=== PATIENT | female | born 1955 | race Caucasian/White ===

== ENCOUNTER 2020-02-04 17:13 | Emergency (ER) | payer MEDICARE, OTHER, SELFPAY ==
[~2020-02-04] VITALS: Ht 154.9 cm; Wt 77.1 kg
[~2020-02-04 17:13] MED LIST: ACET-3457 PO; ALBU3SOL49 IH; BISA10SU1 RC; CALC600T56 PO; CARV6.25 PO; DOCU-299 PO; FERR325E14 PO; GEMF600T5 PO; LEVO500T6 PO; MULT-1184 PO; SINE25 PO; VALP250S20 PO
[2020-02-04 17:14] VITALS: BP 106/66
--- NOTE | 2020-02-04 17:15 | NUR ---
64 YO Female BIBA c/o Altered mental status . Per EMS pt was found walking to laundry mat and was called in due to altered mental status. Pt stated she was in her 50s. Per EMS pt altered to time and place. Pt able to follow all commands . Pt oriented to name, place , time. Pt stated she was walking to a new laundry mat , which was further than her normal laundry place. Pt is unsure why she was taken to hospital. Pt able to let us know her name and address. Pt strenght bilaterally strong in all extremities. Pt PERRLA, able to track. Pt oberved to be sweating , and flushed in the face. Pt hooked up to ekg monitor tech and pulse ox. Pt resting in bed at lowest position, HOB elevated , side rails x2 for pt safety. HX: seizures, HTN RX: unknown
--- NOTE | 2020-02-04 17:16 | NUR ---
Pt placed on seizure precautions, seizure pads placed on side rails.
--- NOTE | 2020-02-04 17:18 | NUR ---
YVETTE FABIAN ALS TO ER BED 02
--- NOTE | 2020-02-04 17:50 | NUR ---
[facility] called for p/u of pt.
--- NOTE | 2020-02-04 18:00 | NUR ---
pt was provided water. Pt resting in bed at lowest position, side rails x2 , seizure pads in place, HOB elevated.
[2020-02-04 18:21] VITALS: BP 106/66
--- NOTE | 2020-02-04 18:22 | NUR ---
Patient discharged with v/s stable. Written and verbal after care instructions given and explained. Patient alert, oriented and verbalized understanding of instructions. Wheel Chair Assisted with to [facility] staff for transportation to halfway. All questions addressed prior to discharge. ID band removed. Patient advised to follow up with PMD. Rx of Cipro given. Patient educated on indication of medication including possible reaction and side effects. Opportunity to ask questions provided and answered.
== END 2020-02-04 18:22 | disposition home or self-care (01) ==
LOC: MED 17:13 → EEVIPCON 17:13 → MED 18:22
DX: N39.0 Urinary tract infection, site not specified (principal); I10 Essential (primary) hypertension; Z79.899 Other long term (current) drug therapy; Z88.2 Allergy status to sulfonamides
CPT/HCPCS: 81002; 87086; 99283

== ENCOUNTER 2021-05-18 11:30 | Inpatient (IN) | payer OTHER, SELFPAY ==
[~2021-05-18] VITALS: Ht 162.6 cm; Wt 62.1 kg
--- NOTE | 2021-05-18 11:30 | NUR ---
PT BIBA AND PLACED IN BED 5.
[2021-05-18 11:36] VITALS: BP 154/76
--- NOTE | 2021-05-18 11:36 | NUR ---
66 Y/O FEMALE BIBA FROM A NURSING FACILITY [facility]. PER EMS WAS FOUND WANDERING AND WALKING AROUND A FAST FOOD FACILITY. PLACED ON 5150 HOLD BY MADHAVI DIANE. GCS 14. PT IS CONFUSED. MEDHX: PARANOIA, SCHIZOPHRENIA ALLERGIES: SULFA
--- NOTE | 2021-05-18 12:03 | NUR ---
S/W MELISSA CAREGIVER AT [facility]. CONSERVATOR JULIA JETER, NO PHONE NUMBER PROVIDED. PT HAS HISTORY OF PARANOIA AND SCHIZOPHRENIA. FACILITY WILL CLOSE ON THURSDAY. UNABLE TO PROVIDE TRANSPORTATION.
--- NOTE | 2021-05-18 12:27 | NUR ---
XRAY AT BEDSIDE
--- NOTE | 2021-05-18 12:39 | NUR ---
COVID SWABS COLLECTED AND DROPPED OFF AT LAB WITH GRISELDA SEQUEIRA
--- NOTE | 2021-05-18 13:30 | NUR ---
LAB AT BEDSIDE
[2021-05-18 13:42] LABS: RED CELL DISTRIBUTION WIDTH 13.4 % (11.6-13.7)
[2021-05-18 13:51] LABS: BASOPHILS % (AUTO) 0.6 % (0.0-2.0); EOSINOPHILS # (AUTO) 0.2 K/uL (0-0.4); HEMATOCRIT 37.9 % (36-48); HEMOGLOBIN 13.4 g/dL (12.0-16.0); LYMPHOCYTES # (AUTO) 2.3 K/uL (2.5-16.5); LYMPHOCYTES % (AUTO) 30.5 % (20.5-51.1); MEAN CORPUSCULAR HEMOGLOBIN 33 pg (27-31); MEAN CORPUSCULAR HGB CONC 35 g/dL (33-37); MEAN CORPUSCULAR VOLUME 92.6 fL (80-94); MONOCYTES # (AUTO) 0.5 K/uL (0.8-1.0); MONOCYTES % (AUTO) 6.7 % (1.7-9.3); NEUTROPHILS # (AUTO) 4.6 K/uL (1.8-7.7); NEUTROPHILS % (AUTO) 60.2 % (42.2-75.2); PLATELET COUNT (AUTO) 226 K/uL (140-450); WHITE BLOOD COUNT (AUTO) 7.6 K/uL (4.8-10.8)
[2021-05-18] MEDS ORDERED: LEVOFLOXACIN 500 MG/D5W PREMIX 100 ML IV ONE (13:55)
[2021-05-18 14:04] LABS: ALBUMIN 3.8 g/dL (3.4-5.0); ANION GAP 14.2 (8-16); ASPARTATE AMINOTRANSFERASE 23 U/L (15-37); CARBON DIOXIDE 27.7 mmol/L (21-32); CHLORIDE 103 mmol/L (98-107); CREATININE 1.1 mg/dL (0.6-1.3); GFR ARICAN-AMERICAN 64 mL/min (>90); GLUCOSE 100 mg/dL (74-106); POTASSIUM 3.9 mmol/L (3.5-5.1); SODIUM SERUM 141 mmol/L (136-145); TOTAL BILIRUBIN 0.6 mg/dL (0.0-1.0); UREA NITROGEN, BLOOD 19 mg/dL (7-18)
[2021-05-18 14:07] LABS: ACETAMINOPHEN < 0.5 ug/ml (10-30); SALICYLATE < 2.8 mg/dL (2.8-20.0)
--- NOTE | 2021-05-18 14:30 | NUR ---
PT AWAKE, RESTING IN BED. RESPIRATIONS EVEN AND UNLABORED. CHEST RISE IS SYMMETRICAL. WILL CONTINUE TO MONITOR.
[2021-05-18 15:56] LABS: APPEARANCE,URINE CLEAR (CLEAR); BILIRUBIN,URINE NEGATIVE (NEGATIVE); BLOOD, URINE NEGATIVE (NEGATIVE); COLOR,URINE YELLOW (YELLOW); LEUKOCYTE ESTERASE ,URINE TRACE (NEGATIVE); NITRITE, URINE NEGATIVE (NEGATIVE); UGLUCOSE NEGATIVE (NEGATIVE)
[2021-05-18 16:24] LABS: BARBITURATE, URINE NEGATIVE ng/ml (NEG <=200); BENZODIAZEPINE, URINE NEGATIVE ng/mL (NEG <=200); CANNABINOID, URINE NEGATIVE ng/mL (NEG <=50); COCAINE, URINE NEGATIVE ng/mL (NEG <=300); OPIATE, URINE NEGATIVE ng/mL (NEG <=2000); PHENCYCLIDINE SCREEN,URINE NEGATIVE ng/mL (NEG <=25)
[2021-05-18 16:29] LABS: RBC,URINE 0-5 /HPF (0-5)
--- NOTE | 2021-05-18 16:46 | NUR ---
Patient will be admitted to care of DR AMES. Admited to MED SURG. Will go to room 109 B. Belongings list completed. Report to KADI NEVES.
[2021-05-18] MEDS ORDERED: DOCUSATE SODIUM 100 MG GELCAP PO PRN (17:30)
[2021-05-18] MEDS ORDERED: POTASSIUM CHLORIDE 10 MEQ TABER PO PRN (17:30)
[2021-05-18] MEDS ORDERED: ZOLPIDEM 5 MG TAB PO PRN (17:30)
[2021-05-18] MEDS ORDERED: ACETAMINOPHEN 325 MG TAB PO PRN (17:30)
[2021-05-18] MEDS ORDERED: guaiFENesin DM 200/20 MG-10 ML 10 ML UDC PO PRN (17:30)
[2021-05-18] MEDS ORDERED: HYDROcodone/APAP 7.5/325 MG 1 TAB PO PRN (17:30)
[2021-05-18] MEDS ORDERED: ONDANSETRON 4 MG/2 ML VIAL IM/IVP PRN (17:30)
[2021-05-18] MEDS: NACL 0.9% 1,000 ML IV SCH (19:03)
--- NOTE | 2021-05-18 19:25 | NUR ---
RECD. REPORT FROM PURA NELSON. PATIENT RESTING IN BED, AWAKE, A/OX3. RESPIRATION EVEN AND UNLABORED. IV OF NS INFUSING 60 ML/HR, LEFT AC G20. ABLE TO AMBULATE TO THE BR INDEPENDENTLY. MEDICATIONS AND CARE FOR THE NIGHT DISCUSSED WITH PATIENT. VERBALIZED UNDERSTANDING. DENIES PAIN 0/10.
[2021-05-18] MEDS ORDERED: cefTRIAXone 1,000 MG VIAL ONE (19:28)
[2021-05-18 19:57] LABS: PROTHROMBIN TIME 11.5 secs (10.8-13.4)
[2021-05-18 20:28] LABS: CHOL/HDL RATIO 3.5 (1-4.5); FREE T4 (FREE THYROXINE) 0.72 ng/dL (0.76-1.46); MAGNESIUM 1.4 mg/dL (1.8-2.4); PHOSPHORUS 3.9 mg/dL (2.5-4.9); THYROID STIMULATING HORMONE 0.87 uIU/mL (0.34-3.74)
[2021-05-18] MEDS ORDERED: VALPROIC ACID 500 MG PO SCH (21:00)
--- NOTE | 2021-05-18 21:00 | NUR ---
ASSISTED TO BR TO VOID, BACK TO BED AFTER VOIDING. SAFETY MAINTAINED.
--- NOTE | 2021-05-18 22:00 | NUR ---
ENCOURAGED TO DRINK MORE WATER AND CRANBERRY JUICES. ASSISTED TO BR TO VOID. BACK TO BED AFTER VOIDING.
--- NOTE | 2021-05-18 23:34 | NUR ---
Patient's Plan of Care was discussed and reviewed with BANDER AND CELLOPHANER MACHINE HELPER: Jing oWmack
[2021-05-19] VITALS: BP 101/54
--- NOTE | 2021-05-19 00:05 | NUR ---
SLEEPING COMFORTABLY IN BED.
--- NOTE | 2021-05-19 02:00 | NUR ---
SLEEPING SUPINE IN BED, RESPIRATION EVEN AND UNLABORED.
--- NOTE | 2021-05-19 04:00 | NUR ---
ON HER RIGHT SIDE STILL ASLEEP. RESPIRATION EVEN AND UNLABORED.
--- NOTE | 2021-05-19 06:00 | NUR ---
AWAKE, RESTING IN BED. ABLE TO SLEEP WELL DURING THE NIGHT.
--- NOTE | 2021-05-19 07:20 | NUR ---
ENDORSED TO AM SHIFT NURSE FOR CONTINUITY OF CARE.
[2021-05-19 07:45] LABS: BASOPHILS % (AUTO) 0.8 % (0.0-2.0); EOSINOPHILS # (AUTO) 0.3 K/uL (0-0.4); EOSINOPHILS % (AUTO) 5.6 % (0.0-4.0); HEMATOCRIT 36.2 % (36-48); HEMOGLOBIN 12.6 g/dL (12.0-16.0); LYMPHOCYTES # (AUTO) 1.9 K/uL (2.5-16.5); LYMPHOCYTES % (AUTO) 41.4 % (20.5-51.1); MEAN CORPUSCULAR HEMOGLOBIN 33 pg (27-31); MEAN CORPUSCULAR HGB CONC 35 g/dL (33-37); MEAN CORPUSCULAR VOLUME 94.1 fL (80-94); MONOCYTES # (AUTO) 0.4 K/uL (0.8-1.0); MONOCYTES % (AUTO) 9.3 % (1.7-9.3); NEUTROPHILS % (AUTO) 42.9 % (42.2-75.2); PLATELET COUNT (AUTO) 203 K/uL (140-450); RED BLOOD CELL COUNT(AUTO) 3.85 MIL/uL (4.20-5.40); RED CELL DISTRIBUTION WIDTH 13.5 % (11.6-13.7); WHITE BLOOD COUNT (AUTO) 4.7 K/uL (4.8-10.8)
[2021-05-19 08:00] VITALS: BP 89/52
[2021-05-19 08:07] LABS: ANION GAP 12.4 (8-16); CREATININE 0.8 mg/dL (0.6-1.3); POTASSIUM 3.4 mmol/L (3.5-5.1)
[2021-05-19] MEDS: PANTOPRAZOLE 40 MG TABEC PO SCH (09:28)
[2021-05-19] MEDS: VALPROIC ACID 250 MG/5 ML UDC PO SCH ×2 (09:28→21:56)
[2021-05-19] MEDS: NACL 0.9% 1,000 ML IV SCH (10:10)
[2021-05-19 17:30] VITALS: BP 98/64
--- NOTE | 2021-05-19 19:15 | NUR ---
CARL. REPORT FROM PURA HUGHES. PATIENT RESTING IN BED, AWAKE, A/OX3. 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 SHE WANTS TO GO HOME TOMORROW, CLAIMED THAT SHE LIVES WITH AND SON IN [place]. NO RESPIRATORY DISTRESS NOTED. RESPIRATION EVEN AND UNLABORED. IV OF NS INFUSING AT 60 ML/HR. ABLE TO AMBULATE WITH ASSISTANCE TO THE BR. DENIES PAIN 0/10.
--- NOTE | 2021-05-19 21:00 | NUR ---
ASSISTED TO BR TO VOID. BACK TO BED AFTER VOIDING.
--- NOTE | 2021-05-19 23:00 | NUR ---
WENT TO BR WITH ASSISTANCE. BACK TO BED AFTER VOIDING.
--- NOTE | 2021-05-20 01:00 | NUR ---
SLEEPING COMFORTABLY IN BED.
[2021-05-20 01:12] VITALS: BP 123/63
[2021-05-20] MEDS: NACL 0.9% 1,000 ML IV SCH ×2 (02:50→17:11)
--- NOTE | 2021-05-20 03:00 | NUR ---
WENT TO BR TO VOID AGAIN, SAFETY MAINTAINED.
--- NOTE | 2021-05-20 05:00 | NUR ---
STILL SLEEPING COMFORTABLY IN BED, RESPIRATION EVEN AND UNLABORED.
[2021-05-20 07:24] LABS: BASOPHILS % (AUTO) 0.6 % (0.0-2.0); EOSINOPHILS # (AUTO) 0.3 K/uL (0-0.4); HEMATOCRIT 36.1 % (36-48); HEMOGLOBIN 12.4 g/dL (12.0-16.0); LYMPHOCYTES # (AUTO) 2.5 K/uL (2.5-16.5); MEAN CORPUSCULAR HEMOGLOBIN 33 pg (27-31); MEAN CORPUSCULAR HGB CONC 34 g/dL (33-37); MEAN CORPUSCULAR VOLUME 94.5 fL (80-94); MONOCYTES # (AUTO) 0.4 K/uL (0.8-1.0); MONOCYTES % (AUTO) 7.5 % (1.7-9.3); NEUTROPHILS # (AUTO) 2.3 K/uL (1.8-7.7); NEUTROPHILS % (AUTO) 41.9 % (42.2-75.2); PLATELET COUNT (AUTO) 197 K/uL (140-450); RED BLOOD CELL COUNT(AUTO) 3.82 MIL/uL (4.20-5.40); RED CELL DISTRIBUTION WIDTH 13.3 % (11.6-13.7); WHITE BLOOD COUNT (AUTO) 5.5 K/uL (4.8-10.8)
--- NOTE | 2021-05-20 07:25 | NUR ---
CONDITION REMAIN STABLE. ENDORSED TO AM NURSE FOR CONTINUITY OF CARE.
[2021-05-20 07:43] LABS: ANION GAP 11.1 (8-16); CARBON DIOXIDE 28.6 mmol/L (21-32); CREATININE 0.8 mg/dL (0.6-1.3); POTASSIUM 3.7 mmol/L (3.5-5.1)
[2021-05-20 08:00] VITALS: BP 106/69
--- NOTE | 2021-05-20 08:29 | NUR ---
PATIENT HAS BEEN SCREENED AND CATEGORIZED LOW NUTRITION RISK. PATIENT WILL BE SEEN WITHIN 7 DAYS OF ADMISSION. 05/25/[address]
[2021-05-20] MEDS: VALPROIC ACID 250 MG/5 ML UDC PO SCH ×2 (09:23→20:57)
[2021-05-20] MEDS: PANTOPRAZOLE 40 MG TABEC PO SCH (09:24)
[2021-05-20 11:46] LABS: T4 (THYROXINE) 4.2 ug/dL (4.5 - 12.0)
--- NOTE | 2021-05-20 12:07 | NUR ---
DC PLANNING DAVION CALL [facility] AT SPOKE TO Jacob AND ASKED FOR ANY NOTES ON PATIENT 5150 STATUS FOR PLACEMENT. PER JACOB SHE HAS NO INTAKE INFORMATION ABOUT PATIENT. NO 5150 HOLD OR CLINICALS HAS BEEN FAXED TO THEM. DAVION INFORMED JACOB ABOUT PATIENT 5150 STATUS AND WILL FAXED ALL INFORMATION NEEDED TO START SEARCH FOR PLACEMENT ON PATIENT. DAVION REQUESTED TO JACOB TO DOCUMENT NOTES ON PATIENT'S CHART. SHE AGREED AND ENDED THE CALL. DAVION FAXED PATIENTS 5150 HOLD AND ALL CLINICAL INFORMATION REQUIRED AND NEEDED BY [facility] AT . DAVION RECEIVED FAX COMPLETION CONFIRMATION AT 12:24 Addendum: 05/21/21 at 1428 by Mervat Brooke CM PATIENT IS A 66 YEAR OLD FEMALE ADMITTED ON A 5150 HOLD ON 05/18/21. DUE TO WALKING AWAY FROM THE [facility] WHERE SHE HAS RESIDED SINCE 2014. DAVION MEET WITH PATIENT TO COLLECT AND GATHER COLLATERAL INFORMATION. PATIENT WAS ABLE TO PROVIDE SOME INFORMATION STATED THAT SHE HAS RESIDED IN [facility] FOR A WHILE. PATIENT SEEM DISORGANIZED WITH THOUGHTS WHEN REPORTED SOME OF HER INFORMATION STATED THAT SHE HAS " TOO MANY SONS AND LIVING IN [place]. PATIENT REPORTED HAVING DR. MONTOYA HER PRIMARY AND HAVING NO ISSUES TAKING OR GETTING HER MEDICATIONS. PATIENT HAS NO DME AND NO AVANCE DIRECTIVES OR CONSERVATOR. PATIENT STATED THAT SHE WILL BE BACK TO [facility] AFTER DC HOWEVER; DAVION IS AWARE THAT THE FACILITY WILL BE CLOSING OF 05/21/21. DAVION CALLED [facility]. SPOKE TO BREAST BUFFER NAMAN AT . PER NAMAN THE [facility] AND CARE WILL BE CLOSING OF TODAY 05/21/2021. DUE TO FACILITY CHEMICAL PROCESSING SUPERVISOR PASSING AWAY AND FAMILY DECISION TO SALE THE FACILITY. PER NAMAN THE FACILITY IS BEEN CLOSE AND READY TO BE TURNED INTO A SUBSTANCE ABUSE PROGRAM. PER NAMAN PATIENT CAME TO THEIR FACILITY IN 2014 SINCE THEN SHE NO LONGER HAS A CONSERVATOR DUE TO PATIENT BEEN ABLE TO CARE FOR SELF INDEPENDENTLY. UNTIL RECENTLY SHE HAS LOST OF MEMORY AND IS CONFUSED SOME OF THE TIME THEREFORE; HER LEVEL OF CARE HAS CHANGE. DAVION ASKED NAMAN WHAT WAS THEIR PLAN FOR PLACEMENT FOR PATIENT BEFORE SHE WALKS OUT OF THEIR FACILITY. ACCORDING TO NAMAN THEY WHERE LOOKING FOR HER TO GO IN TO ANOTHER [facility] FACILITY. ACCORDING TO NAMAN PATIENT GETS 1,217.37 A MONTH FROM S.S. AND THE [facility] IS WHO GETS HER FUNDS IN A MONTHLY BASIS UNTIL PATIENT GETS A NEW PLACEMENT AND CHANGES ARE MADE. NAMAN STATED THAT PATIENT HAS NO FAMILY AND NO CONSERVATOR AND SHE MAKES DECISIONS FOR HER SELF. PER NAMAN PATIENT WILL NEED PLACEMENT AT MD. DAVION INFORM HER THAT LICENSING BOARD WILL BE CONTACTED IN REGARDS TO PATIENT SITUATION SINCE PATIENT SEEMS TO HAVE BEEN DOMP TO [facility]. NAMAN UNDERSTOOD AND DAVION ENDED THE CALL. Addendum: 05/21/21 at 1454 by Mervat Brooke MD PLANING: DAVION CONTACT VICKY SEAY FORM DEPARTMENT OF CARBIDE TOOL MAKER LICENSING BOARD [place]. HER DIRECT CONTACT NUMBER IS . TO DISCUSS PATIENT'S STATUS, SITUATION AND [facility] SW CONCERNS FOR PATIENT BEEN DOMP IN THE HOSPITAL BY MADHAVI Hill DUE TO THEIR RECENT FACILITY CLOSURE OF 05/21/21. MRS. VICKY SEAY STATED THAT SHE IS THE ONE THAT WILL HAVE TO FOLLOW UP NOT ONLY ON PATIENT'S CASE BUT ALL CASES IN THE FACILITY, TO ASSURE THAT ALL PLACEMENTS WHERE APPROPRIATE, BEFORE THEIR CLOSURE. SHE ASKED SW IF [facility] IS RESPONSIBLE TO FIND PLACEMENT FOR PATIENT AT DISCHARGE. SW RESPONDED EXPLAINING TO MRS. SEAY THE PROCESS OF PLACEMENT FOR 5150 HOLDS TO A TEMPORARY SPYCH FACILITY AND IF PATIENT DO NOT GO IN A HOLD TO A PSYCH FACILITY A PLACEMENT SEARCH WILL TAKE PLACE FOR A TEMPORALLY CARE ACCORDING TO PATIENT'S NEEDS AT TIME OF DISCHARGE. MRS. SEAY AGREED AND STATED THAT THEY DO NOT DO PLACEMENTS FOR INDIVIDUALS HOWEVER; SHE WILL KEEP IN CONTACT WITH COMPRESSOR MECHANIC BUS TO GET AND UPDATED ON PLACEMENT. SW PROVIDED CONTACT INFORMATION AND ENDED THE CALL.
[2021-05-20 16:00] VITALS: BP 142/81
--- NOTE | 2021-05-20 19:34 | NUR ---
ENDORSED CARE TO ISABEL NEVES FOR CONTINUITY OF CARE.
--- NOTE | 2021-05-20 19:35 | NUR ---
RECEIVED ENDORSEMENT FROM RN DAYSHIFT NURSE AT BEDSIDE FOR CONTINUITY OF CARE, PT IN STABLE CONDITION.
[2021-05-20 20:00] VITALS: BP 110/65
--- NOTE | 2021-05-20 20:00 | NUR ---
PT SITTING UP IN BED AOX 2-3. SHE IS ON ROOM AIR. SHE HAS RIGHT HAND FINGER IV 24 GUAGE RUNNING NORMAL SALINE AT 60MLS/HR. PT V/S FOLLOWS: T 97.0 P 54 R 20 B/P 110/65 02 93% ON ROOM AIR. PT AMBULATED TO TOILET WITH STANDBY ASSISTANCE. ALL ORDERED PRECAUTIONS IN PLACE.
[2021-05-20] MEDS: DOXEPIN 25 MG CAP PO SCH (20:56)
--- NOTE | 2021-05-20 20:56 | NUR ---
Packet has been fax to [facility]. S/W Ray and patient still needs clearance from Neurology. She will f/up in the AM
--- NOTE | 2021-05-20 21:15 | NUR ---
PT GIVEN ORDERED DEPAKENE AND DOXEPIN. EDUCATION REGARDING PT MEDICATION AND PURPOSES PROVIDED AT BEDSIDE, PT VERBALIZED UNDERSTANDING. NORMAL SALINE CONTINUES AT 60MLS/HR ORDERED. ALL REQUESTED NEEDS ATTENDED BY STAFF.
--- NOTE | 2021-05-20 22:00 | NUR ---
DR GARCIA CONSULT COMPLETED, PT OK TO BE D/CD PER PSYCHIATRY. PT IN BED ASLEEP.
--- NOTE | 2021-05-21 | NUR ---
PT IN BED ASLEEP, ALL ORDERED PRECAUTIONS IN PLACE.
--- NOTE | 2021-05-21 04:00 | NUR ---
PT IN BED, SHE WOKE UP AND AMBULATED WITH STANDBY ASSISTANCE TO TOILET AND BACK TO BED. PT DENIES ANY PAIN , FLUIDS RUNNING ORDERED. V/S FOLLOWS: T 97.0 P 51 R 20 B/P 106/49 02 93%. ALL ORDERED PRECAUTIONS IN PLACE.
[2021-05-21 07:07] LABS: BASOPHILS % (AUTO) 0.3 % (0.0-2.0); EOSINOPHILS # (AUTO) 0.3 K/uL (0-0.4); EOSINOPHILS % (AUTO) 5.2 % (0.0-4.0); HEMATOCRIT 36.3 % (36-48); HEMOGLOBIN 12.8 g/dL (12.0-16.0); LYMPHOCYTES # (AUTO) 2.4 K/uL (2.5-16.5); LYMPHOCYTES % (AUTO) 45.2 % (20.5-51.1); MEAN CORPUSCULAR HEMOGLOBIN 33 pg (27-31); MEAN CORPUSCULAR HGB CONC 35 g/dL (33-37); MEAN CORPUSCULAR VOLUME 93.2 fL (80-94); MONOCYTES # (AUTO) 0.3 K/uL (0.8-1.0); MONOCYTES % (AUTO) 6.4 % (1.7-9.3); NEUTROPHILS # (AUTO) 2.3 K/uL (1.8-7.7); NEUTROPHILS % (AUTO) 42.9 % (42.2-75.2); PLATELET COUNT (AUTO) 200 K/uL (140-450); RED BLOOD CELL COUNT(AUTO) 3.89 MIL/uL (4.20-5.40); RED CELL DISTRIBUTION WIDTH 13.6 % (11.6-13.7); WHITE BLOOD COUNT (AUTO) 5.4 K/uL (4.8-10.8)
[2021-05-21 07:10] LABS: ANION GAP 11.3 (8-16); CARBON DIOXIDE 30.5 mmol/L (21-32); CREATININE 0.7 mg/dL (0.6-1.3); POTASSIUM 3.8 mmol/L (3.5-5.1)
--- NOTE | 2021-05-21 08:13 | NUR ---
RECEIVED PT SLEEPING ON ROOM AIR, SKIN WARM TO TOUCH RESP. EVEN AND UNLABORED, IVF ON GOING NS AT 60ML/HR VIA PERIPHERAL LINE, NO UNUSUAL OBSERVATION NOTED, ABDOMEN SOFT NON DISTENDED
[2021-05-21] MEDS: PANTOPRAZOLE 40 MG TABEC PO SCH (09:22)
[2021-05-21] MEDS: VALPROIC ACID 250 MG/5 ML UDC PO SCH ×2 (09:23→20:46)
[2021-05-21 09:34] VITALS: BP 113/76
--- NOTE | 2021-05-21 11:09 | NUR ---
TALKED TO [facility] NAMAN, PER NAMAN THE PLACE IS BEING CLOSED TODAY, INFORMED RENA PATROL SUPERVISOR, PER RENA SHE WILL CALL [facility] [phone]
[2021-05-21] MEDS: NACL 0.9% 1,000 ML IV SCH (11:11)
--- NOTE | 2021-05-21 12:14 | NUR ---
IN HER ROOM, IVF ONGOING WELL TOLERATED,NO SOB NOTED.
[2021-05-21 12:23] VITALS: BP 114/66
--- NOTE | 2021-05-21 13:21 | NUR ---
DC PLANNING: PATIENT HAS AN ORDER FOR HIGHER LEVEL OF CARE FOR EVALUATION OF NEURO SURGEON. FAXED TO [facility] [place] ,[facility] AND [facility]. CM TO FOLLOW Addendum: 05/21/21 at 1547 by Cait Vargas RN DC PLANNING: RECEIVED A CALL [facility] SPOKE WITH ED MENDEZ NAME [place] STATED PEER TO PEER DONE WITH NEUROSURGEON DR MOLINA TOURE STATED NO SURGERY NEEDED AT THIS TIME BUT CAN BE DC AND FOLLOW UP OUT PT. HIS ADDRESS [address] [place] [address] [place] [address] PHONE # [phone] . CALLED [facility] [phone] SPOKE WITH ELA THE DISTRICT EXTENSION SERVICE AGENT STATED TO FAX THE PROGRESS NOTES TO [phone]. CM TO FOLLOW Addendum: 05/22/21 at 1602 by Cait Vargas RN DC PLANNING: CALLED [place] SPOKE WITH THE DISPATCHER STATED WILL COME TO RENEW THE 5150 HOLD. ARRANGE TRANSPORT WITH [facility] PLACE IT WILL CALL. PLS CALL [facility] [phone] WHEN THE HOLD RENEW. CM TO FOLLOW
--- NOTE | 2021-05-21 14:57 | NUR ---
DISCHARGE PLANNING DAVION CONTACTED IAN AT [facility] TO DISCUSS PATIENT'S STATUS AND POSSIBLE NEED FOR CARE. PER IAN HE WILL LIKE FOR DAVION TO SEND VIA FAX PATIENT INFORMATION AND CLINICALS TO VIEW. DAVION FAX PATIENT INFORMATION AT WITH CONFIRMATION COMPLETED. AT ABOUT 12:30.
--- NOTE | 2021-05-21 15:05 | NUR ---
ASSISTED PT TO THE BATHROOM, APTIENT ALERT, AWAKE, NO C/O PAIN
[2021-05-21 17:31] VITALS: BP 107/68
--- NOTE | 2021-05-21 17:41 | NUR ---
ASSISTED PT WITH SPONGE BATH CLAIMED MY SHOULD BE PICKING ME UP TO GO HOME, EXPLAINED TO PT NO DISCHARGE ORDER YET ,NO SOB NOTED
--- NOTE | 2021-05-21 18:47 | NUR ---
PATIENT EATING AT THIS TIME WITH GOOD APPETITE
--- NOTE | 2021-05-21 19:15 | NUR ---
RECD. RESTING IN BED, AWAKE, A/OX3. RESPIRATION EVEN AND UNLABORED. IV OF NS AT 60 ML/HR INFUSING, RIGHT HAND G24. ABLE TO AMBULATE WITH ASSISTANCE TO THE BR. INQUIRED ABOUT PLANS FOR HER, ORIENTED PLAN FOR A NEUROLOGIST TO SEE HER PER MD ORDER. VERBALIZED SHE WANTS TO GO HOME AND DOES NOT WANT TO GO TO SNF, CLAIMED HER ALREADY BROUGHT HER CLOTHES IN THE LOBBY. ASSURED THAT HER MD WILL BE INFORMED AND THAT SHE CANNOT LEAVE FOR TONIGHT BECAUSE THERE IS NO DISCHARGE ORDER YET. AGREED. DENIES PAIN 0/10.
[2021-05-21] MEDS: DOXEPIN 25 MG CAP PO SCH (20:46)
--- NOTE | 2021-05-21 20:46 | NUR ---
ADMINISTERED SCHEDULED MEDICATIONS.
--- NOTE | 2021-05-21 22:00 | NUR ---
ASSISTED TO GO TO THE BR TO VOID, BACK TO BED AFTER VOIDING. SAFETY MAINTAINED.
[2021-05-22] VITALS: BP 118/65
--- NOTE | 2021-05-22 | NUR ---
SLEEPING COMFORTABLY IN BED.
--- NOTE | 2021-05-22 02:00 | NUR ---
WOKE UP, GOES TO THE BR TO VOID AND BACK TO BED AFTER VOIDING.
--- NOTE | 2021-05-22 06:00 | NUR ---
WOKE UP, ACCIDNTALLY WET THE BED, BEDDINGS CHANGED.
[2021-05-22] MEDS: NACL 0.9% 1,000 ML IV SCH (06:50)
[2021-05-22 06:56] LABS: BASOPHILS % (AUTO) 0.4 % (0.0-2.0); EOSINOPHILS # (AUTO) 0.3 K/uL (0-0.4); EOSINOPHILS % (AUTO) 4.1 % (0.0-4.0); HEMATOCRIT 39.2 % (36-48); HEMOGLOBIN 13.7 g/dL (12.0-16.0); LYMPHOCYTES # (AUTO) 2.6 K/uL (2.5-16.5); LYMPHOCYTES % (AUTO) 41.3 % (20.5-51.1); MEAN CORPUSCULAR HEMOGLOBIN 33 pg (27-31); MEAN CORPUSCULAR HGB CONC 35 g/dL (33-37); MONOCYTES # (AUTO) 0.4 K/uL (0.8-1.0); MONOCYTES % (AUTO) 5.8 % (1.7-9.3); NEUTROPHILS # (AUTO) 3.1 K/uL (1.8-7.7); NEUTROPHILS % (AUTO) 48.4 % (42.2-75.2); PLATELET COUNT (AUTO) 233 K/uL (140-450); RED BLOOD CELL COUNT(AUTO) 4.17 MIL/uL (4.20-5.40); RED CELL DISTRIBUTION WIDTH 13.3 % (11.6-13.7); WHITE BLOOD COUNT (AUTO) 6.3 K/uL (4.8-10.8)
[2021-05-22 07:00] LABS: ANION GAP 10.7 (8-16); CARBON DIOXIDE 32.3 mmol/L (21-32); CREATININE 0.7 mg/dL (0.6-1.3)
--- NOTE | 2021-05-22 07:27 | NUR ---
ABLE TO SLEEP WELL. CONDITION REMAIN STABLE. ENDORSED TO AM SHIFT NURSE FOR CONTINUITY OF CARE.
--- NOTE | 2021-05-22 07:28 | NUR ---
RECEIVED REPORT FROM GLASS SILVERER NURSE FOR CONTINUITY OF CARE, POC DISCUSSED. PT IS RESTING IN BED WITH NO ACUTE S/S OF DISTRESS, ON RA WITH CHEST RISING AND FALLING EVEN AND UNLABORED. PT HAS A RIGHT HAND 24G RUNNING NS AT 60. PT DENIES PAIN AT THIS TIME. ALL SAFETY MEASURES IN PLACE, CALL LIGHT WITHIN REACH. WILL CONTINUE TO MONITOR.
[2021-05-22 08:00] VITALS: BP 121/67
[2021-05-22] MEDS: VALPROIC ACID 250 MG/5 ML UDC PO SCH (08:09)
[2021-05-22] MEDS: PANTOPRAZOLE 40 MG TABEC PO SCH (08:10)
--- NOTE | 2021-05-22 08:14 | NUR ---
KRISTINE MEDICATION ADMINISTERED PER MD ORDER, PT TOLERATED ADMINISTRATION. PT EDUCATION PROVIDED. PT VERBALIZED UNDERSTANDING. PT IS ALERT AND ORIENTED X3, DENIES PAIN AND REPORTS ALL OTHER NEEDS ARE MET AT THIS TIME. ALL SAFETY MEASURES IN PLACE, CALL LIGHT WITHIN REACH. WILL CONTINUE TO MONITOR.
--- NOTE | 2021-05-22 10:24 | NUR ---
SPOKE WITH PT AROUND 929. EXPLAINED TO THE PT THE PLAN IS TO TRANSFER HER BACK TO [facility]. CURRENTLY PT STATES "I WANT TO GO TO MY HOME, I HAVE A LOVING AND 10 SONS. WE HAVE A BEAUTIFUL 4 BEDROOM HOME. I DON'T KNOW WHY IM HERE, I WAS JUST SITTING IN A RESTAUR[employer] DRINKING COLD WATER." REORIENTED PT AND EXPLAINED THAT FOR HER SAFETY, CASE MANAGEMENT IS FINDING A NURSING FACILITY TO ASSIST WITH HER MEDICATION. PT VERBALIZED OKAY. PT IS CURRENT STABLE, WITH NO SIGNS OF AGITATION. ALL SAFETY MEASURES IN PLACE, CALL LIGHT WITHIN REACH. WILL CONTINUE TO MONITOR.
--- NOTE | 2021-05-22 12:09 | NUR ---
PRANAY PLANNING DAVION CALL [facility] AND SPOKE TO GALO (LAW TUTOR) AT DISCUSS PATIENTS NEED FOR PLACEMENT AND LEVEL OF CARE. GALO REQUESTED PATIENTS CLINICALS TO BE FAX AT . DAVION SEND FAX TO FACILITY WITH COMPLETED CONFIRMATION AT 10:39. GALO FROM [facility] CALLED DAVION STATING THAT THEIR MONTHLY RENT IS OF $1,550.00 HE ASKED WHAT PT'S INCOME WAS, DAVION LET HIM KNOW THAT PT. GETS $1,217.37 MONTHLY ON SS. PER GALO HE HAS TO DECLINE PT. DAVION THANK HIM FOR THE CALL BACK AND ENDED CONVERSATION. Addendum: 05/22/21 at 1711 by Mervat Brooke CM DC PLANNING DAVION MET WITH OFFICER Lopez LITTLE FROM [facility] TO DISCUSS PATIENT'S HX. OF MENTAL ILLNESS. OFFICER ASKED DAVION IF PATIENT HAS ANY CURRENT CONSERVATOR. DAVION PROVIDED HX. PROVIDED BY NAMAN FROM [facility], STATING THAT PATIENT NO LONGER HAS A CONSERVATOR OF 2014. OFFICER ANABEL THANK THESE OUTREACH REP FOR INFORMATION, MET WITH PATIENT AND COMPLETED 5150 HOLD. DAVION FAXED A COPY OF THE 5150 HOLD TO [facility] AT WITH COMPLETE CONFIRMATION AT 16:58
--- NOTE | 2021-05-22 14:51 | NUR ---
Patient has been accepted at [facility]. Transport would need to go to ER at [place]. S/W Leola and gave her info. [facility] [id number] [place] [id number] MD: Dr. Solorzano Phone number for nurse nurse: [phone] Please call [phone] for ETA
[2021-05-22 16:00] VITALS: BP 120/59
--- NOTE | 2021-05-22 17:04 | NUR ---
FINISHED PT DISCHARGE PAPERWORK, CALLED [facility] TO GIVE FULL REPORT ON PT. PURA DIAZ RECEIVED THE REPORT. ANSWERED ALL OF HER QUESTIONS AND ENDORSED THE PLAN OF CARE. PT SIGNED ALL OF HER DISCHARGE PAPERWORK. PT VERBALIZED UNDERSTANDING BUT REPEATEDLY STATES SHE WANTS TO SEE HER . BELONGINGS AT BEDSIDE, IV DISCONNECTED. WILL REMOVE IV AND ID BAND WHEN TRANSPORTATION ARRIVES. PT IS STABLE.
--- NOTE | 2021-05-22 17:15 | NUR ---
KIRSTEN-WELDING PROCESS ENGINEER FROM [facility] CALLED STATED THAT THE 5150 HOLD THAT OFFICER Lopez LITTLE WROTE THIS AFTERNOON WAS NOT FILLED OUT PROPERLY. MANUFACTURING SUPERVISOR 2ND SHIFT RENA NOTIFIED STATED SHE CALLED [facility], STATED THAT OFFICER ANABEL WILL COME AND FIX IT. DEBBIE-RN ASSIGNED MADE AWARE.
--- NOTE | 2021-05-22 17:54 | NUR ---
ETIOLOGY TEACHER FROM [facility] CALLED STATED SHE DID NOT RECEIVE THE FAX OF THE CONTINUED 5150 HOLD. GAVE NEW FAX NUMBER [phone]. [facility] DIRECT NUMBER; [phone].
--- NOTE | 2021-05-22 18:04 | NUR ---
PD DID NOT FILL OUT PAPERWORK COMPLETELY. [facility] CALLED AND THEY STATED THEY WILL COME BACK TO THE [facility] WITH THE ORIGINAL COPY TO COMPLETE AND WILL GET THE FAX SENT OVER.
--- NOTE | 2021-05-22 18:38 | NUR ---
ORIENTAL RUG STRETCHER CALLED MADHAVI DIANE AGAIN TO GET THEM TO RETURN TO HOSPITAL TO COMPLETE PAPERWORK
--- NOTE | 2021-05-22 18:54 | NUR ---
MADHAVI DIANE STILL NOT HERE. VOICEMAIL MESSAGE LEFT AT OFFICER Lopez LITTLE'S VM BOX REGARDING THE ISSUE. AWAITING FOR CALL BACK.
[2021-05-22 19:20] VITALS: BP 143/71
--- NOTE | 2021-05-22 19:30 | NUR ---
PT ENDORSED TO PANTOGRAPH TRANSFERRER NURSE FOR CONTINUITY OF CARE, POC DISCUSSED.
--- NOTE | 2021-05-22 19:30 | NUR ---
RECD. RESTING IN BED, AWAKE, A/OX2. RESPIRATION EVEN AND UNLABORED. IV SALINE LOCK AT THE RIGHT HAND G24, PATENT AND INTACT. AWARE OF PLAN TRANSFER TONIGHT TO [facility]. VS STABLE. DENIES PAIN 0/10.
--- NOTE | 2021-05-22 19:55 | NUR ---
FAX COMPLETED 2648 PAPER BROUGHT BY Ashlee LITTLE OF [place] TO [facility].
--- NOTE | 2021-05-22 20:05 | NUR ---
[facility] AMBULANCE PERSONNEL CAME TO TAKE PATIENT.
--- NOTE | 2021-05-22 20:10 | NUR ---
IV SALINE LOCK AND ID BAND TAKEN OFF.
--- NOTE | 2021-05-22 20:15 | NUR ---
REPORT GIVEN TO AMBULANCE PERSONNEL, BELONGINGS AND PACKET GIVEN TO AMBULANCE PERSONNEL.
--- NOTE | 2021-05-22 20:30 | NUR ---
TAKEN TO HOSPITAL LOBBY PARKING AREA IN STABLE CONDITION VIA GURNEY ACCOMPANIED BY [facility] PERSONNEL FOR TRANSFER TO [facility].
== END 2021-05-22 20:35 | DRG 689 ==
LOC: MED 11:30 → MTU 15:18
PROVIDERS: ADMIT Family Medicine; ATTEND Family Medicine
DX: N39.0 Urinary tract infection, site not specified (principal); G93.41 Metabolic encephalopathy; D35.2 Benign neoplasm of pituitary gland; F20.9 Schizophrenia, unspecified; I10 Essential (primary) hypertension; F31.9 Bipolar disorder, unspecified; E87.6 Hypokalemia; Z20.822 Contact with and (suspected) exposure to COVID-19; G89.29 Other chronic pain; M54.9 Dorsalgia, unspecified; Z88.2 Allergy status to sulfonamides; Z79.2 Long term (current) use of antibiotics; Z79.899 Other long term (current) drug therapy
CPT/HCPCS: 36415; 70450; 71045; 80048; 80053; 80305; 81001; 82150; 82948; 83036; 83690; 83735; 83880; 84100; 84436; 84439; 84443; 84479; 84484; 85025; 85610; 85730; 87040; 87086; 93005; 96365; 97163-GP; 99285; G0480; G0482; J0696; J1956; J7060; U0003